=== PATIENT | female | born 1965 ===

== ENCOUNTER 2018-08-24 12:57 | Outpatient (CLI) | payer MEDICAID | END 2018-08-24 12:58 | disposition home or self-care (01) | LOC: C.USIC 12:57 | DX: Z86.018 Personal history of other benign neoplasm (principal); Z12.31 Encounter for screening mammogram for malignant neoplasm of breast ==

== ENCOUNTER 2018-08-25 09:04 | Day surgery (SDC) | payer MEDICAID ==
[2018-08-25 09:45] VITALS: BMI 31.6
[2018-08-25 10:29] VITALS: PULSE 65; RESP 20; TEMP 98.6; O2SAT 98
[2018-08-25] MEDS ORDERED: Propofol 10 mg/ml Inj (20 ML) ONE (10:59)
[2018-08-25] MEDS ORDERED: Lactated Ringer's 500 ML IV ONE (11:22)
[2018-08-25] MEDS ORDERED: Lactated Ringer's 500 ML IV SCH (12:30)
[2018-08-25 13:45] VITALS: BP 125/64
== END 2018-08-25 13:46 | disposition home or self-care (01) ==
LOC: C.ENDO 09:04
PROVIDERS: ATTEND Internal Medicine Gastroenterology
DX: D12.2 Benign neoplasm of ascending colon (principal); K64.8 Other hemorrhoids
CPT/HCPCS: 45388; 84703; 88305; J2001; J2704; J7120